=== PATIENT | male | born 1955 | race African-American/Black ===

== ENCOUNTER 2018-01-04 11:59 | Inpatient (IN) | payer MEDICAID, OTHER ==
[~2018-01-04] VITALS: Ht 188 cm; Wt 83.9 kg
[2018-01-04 12:41] LABS: BASOPHILS % (AUTO) 0.5 % (0.0-2.0); EOSINOPHILS % (AUTO) 0.4 % (0.0-7.0); HEMATOCRIT 30.3 % (36.7-47.1); HEMOGLOBIN 10.1 g/dL (12.5-16.3); LYMPHOCYTES # (AUTO) 1.1 K/uL (20.0-40.0); LYMPHOCYTES % (AUTO) 10.5 % (20.5-51.5); MEAN CORPUSCULAR HEMOGLOBIN 26.5 uug (23.8-33.4); MEAN CORPUSCULAR HGB CONC 33 g/dL (32.5-36.3); MEAN CORPUSCULAR VOLUME 79.6 fL (73.0-96.2); MONOCYTES # (AUTO) 1.3 K/uL (2.0-10.0); MONOCYTES % (AUTO) 12.3 % (0.0-11.0); NEUTROPHILS # (AUTO) 7.9 K/uL (1.8-8.9); NEUTROPHILS % (AUTO) 76.3 % (38.5-71.5); PLATELET COUNT (AUTO) 263 K/uL (152-348); RED BLOOD CELL COUNT(AUTO) 3.81 MIL/uL (4.06-5.63); WHITE BLOOD COUNT (AUTO) 10.4 K/uL (3.6-10.2)
[2018-01-04 12:49] LABS: CREATININE 1.1 mg/dL (0.6-1.3)
[2018-01-04] MEDS ORDERED: ACET-2605 PO (12:50)
[2018-01-04] MEDS ORDERED: MELA3TAB PO (12:50)
[2018-01-04] MEDS ORDERED: FERROUS SULFATE PO (12:50)
[2018-01-04] MEDS ORDERED: ATOR80TA PO (12:50)
[2018-01-04] MEDS ORDERED: POLY17PO4 PO (12:50)
[2018-01-04] MEDS ORDERED: MAGN400T6 PO (12:50)
[2018-01-04] MEDS ORDERED: RIVA10TA PO (12:50)
[2018-01-04] MEDS ORDERED: OXYC-128 PO (12:50)
[2018-01-04] MEDS ORDERED: BENA40TA2 PO (12:50)
[2018-01-04] MEDS ORDERED: GABA300C PO (12:50)
[2018-01-04] MEDS ORDERED: EMOL454C7 TP (12:50)
[2018-01-04] MEDS ORDERED: CARV12.52 PO (12:50)
[2018-01-04] MEDS ORDERED: PROT946L PO (12:50)
[2018-01-04] MEDS ORDERED: OXYC30TA86 PO (12:50)
[2018-01-04] MEDS ORDERED: ZOLP10TA2 PO (12:50)
[2018-01-04 12:55] LABS: BILIRUBIN,TOTAL 0.5 mg/dL (0.2-1.0); TOTAL PROTEIN, SERUM 8.1 g/dL (6.4-8.2)
[2018-01-04] MEDS ORDERED: HYDROCODONE/APAP 7.5-325MG TABLET PO PRN (13:15)
[2018-01-04] MEDS ORDERED: HYDROCODONE/APAP 7.5-325MG TABLET ONE (13:22)
[2018-01-04] MEDS ORDERED: IV NS 1000 ML 1,000 ML IV PRN (13:45)
[2018-01-04] MEDS ORDERED: Z GUARD REMEDY PASTE 57 GM TUBE TOP PRN (13:45)
[2018-01-04] MEDS ORDERED: MORPHINE SULFATE 2 MG/1 ML DISP.SYRIN IV PRN (13:45)
[2018-01-04] MEDS ORDERED: MAGNESIUM HYDROXIDE 30 ML LIQUID UDC PO PRN (13:45)
[2018-01-04] MEDS ORDERED: ONDANSETRON 4 MG/2 ML VIAL IV PRN (13:45)
[2018-01-04] MEDS ORDERED: ALBUTEROL SULFATE 2.5 MG/ 0.5 ML NEBU NEB ONE (13:45)
[2018-01-04] MEDS ORDERED: NITROGLYCERIN 0.4 MG/TAB BOTTLE SL PRN (13:45)
[2018-01-04] MEDS ORDERED: IPRATROPIUM BROMIDE 0.5 MG/2.5 ML NEBU NEB ONE (13:45)
[2018-01-04] MEDS ORDERED: CEFTRIAXONE 1 G in IV DEXTROSE 5% 50 ML IV ONE (13:45)
[2018-01-04] MEDS ORDERED: CEFTRIAXONE 1 G VIAL ONE (13:58)
[2018-01-04] MEDS: LEVOFLOXACIN 750MG/D5W 750 MG in PREMIXED 1 EACH IV SCH (14:02)
[2018-01-04] MEDS: GABAPENTIN 300 MG CAPSULE PO SCH ×3 (14:02→20:03)
[2018-01-04] MEDS ORDERED: IPRATROPIUM BROMIDE 0.5 MG/2.5 ML NEBU ONE (14:05)
[2018-01-04] MEDS ORDERED: ALBUTEROL SULFATE 2.5 MG/ 0.5 ML NEBU ONE (14:05)
[2018-01-04] MEDS ORDERED: LEVOFLOXACIN 750MG/D5W 150 ML IV ONE (14:15)
[2018-01-04] MEDS ORDERED: GABAPENTIN 300 MG CAPSULE ONE (14:16)
[2018-01-04 15:43] VITALS: BP 96/60
[2018-01-04 15:54] LABS: *BILIRUBIN,URIN NEGATIVE (NEGATIVE); *BLOOD, URINE NEGATIVE (NEGATIVE); *CLARITY,URINE SLIGHTLY CLOUDY (CLEAR); *COLOR,URINE YELLOW (YELLOW); *KETONES,URINE NEGATIVE (NEGATIVE); *PROTEIN,URINE NEGATIVE (NEGATIVE); LEUKOCYTE ESTERASE ,URINE NEGATIVE (NEGATIVE); NITRITE, URINE NEGATIVE (NEGATIVE); UGLUCOSE NEGATIVE (NEGATIVE)
[2018-01-04 15:56] LABS: BACTERIA,URINE NONE SEEN /HPF (NONE SEEN); RBC,URINE 0-3 /HPF (0-3); SQUAMOUS EPITHELIAL CELL,UR FEW /HPF (NONE SEEN); WBC,URINE 0-3 /HPF (0-3)
[2018-01-04] MEDS: MIRALAX 17 GM POWD.PACK PO SCH (17:00)
[2018-01-04] MEDS ORDERED: OXYCODONE/APAP 5-325 MG TABLET PO SCH (18:00)
[2018-01-04] MEDS: ACETAMINOPHEN 325 MG TABLET PO PRN (19:47)
[2018-01-04] MEDS: ATORVASTATIN 40 MG TABLET PO SCH (20:03)
[2018-01-04] MEDS: MORPHINE SULFATE 4 MG/1 ML DISP.SYRIN IV PRN (20:04)
[2018-01-04 21:23] VITALS: BP 141/55
[2018-01-05 00:09] VITALS: BP 134/59
[2018-01-05] MEDS: ACETAMINOPHEN 325 MG TABLET PO PRN (01:03)
[2018-01-05] MEDS ORDERED: ACETAMINOPHEN 325 MG TABLET PO ONE (01:15)
[2018-01-05] MEDS: MORPHINE SULFATE 4 MG/1 ML DISP.SYRIN IV PRN (03:25)
[2018-01-05 04:00] VITALS: BP 151/78
[2018-01-05 06:55] LABS: BASOPHILS % (AUTO) 0.3 % (0.0-2.0); EOSINOPHILS % (AUTO) 0.2 % (0.0-7.0); HEMATOCRIT 31.5 % (36.7-47.1); HEMOGLOBIN 10.4 g/dL (12.5-16.3); LYMPHOCYTES # (AUTO) 1.1 K/uL (20.0-40.0); LYMPHOCYTES % (AUTO) 10.6 % (20.5-51.5); MEAN CORPUSCULAR HEMOGLOBIN 26.4 uug (23.8-33.4); MEAN CORPUSCULAR HGB CONC 33 g/dL (32.5-36.3); MEAN CORPUSCULAR VOLUME 80.5 fL (73.0-96.2); MONOCYTES # (AUTO) 1.2 K/uL (2.0-10.0); MONOCYTES % (AUTO) 11.5 % (0.0-11.0); NEUTROPHILS # (AUTO) 7.8 K/uL (1.8-8.9); NEUTROPHILS % (AUTO) 77.4 % (38.5-71.5); PLATELET COUNT (AUTO) 248 K/uL (152-348); RED BLOOD CELL COUNT(AUTO) 3.92 MIL/uL (4.06-5.63); WHITE BLOOD COUNT (AUTO) 10.1 K/uL (3.6-10.2)
[2018-01-05 07:02] LABS: THYROID STIMULATING HORMONE 0.913 mIU/mL (0.358-3.740)
[2018-01-05 07:04] LABS: CREATININE 1.1 mg/dL (0.6-1.3); MAGNESIUM 1.8 mg/dL (1.8-2.4); PHOSPHOROUS 3.7 mg/dL (2.5-4.9); POTASSIUM 4.1 mmol/L (3.5-5.1)
[2018-01-05] MEDS: GABAPENTIN 300 MG CAPSULE PO SCH ×4 (08:10→21:10)
[2018-01-05] MEDS: ASPIRIN 81 MG TAB.CHEW PO SCH (08:10)
[2018-01-05] MEDS: OXYCODONE/APAP 5-325 MG TABLET PO PRN ×2 (08:11→19:01)
[2018-01-05] MEDS ORDERED: RIVAROXABAN 10 MG TABLET PO SCH (09:00)
[2018-01-05] MEDS: MIRALAX 17 GM POWD.PACK PO SCH ×2 (09:00→17:00)
[2018-01-05 11:16] VITALS: BP 94/61
[2018-01-05] MEDS ORDERED: VANCOMYCIN IV 1 G in PREMIXED 0 EACH IV SCH (12:00)
[2018-01-05] MEDS: LEVOFLOXACIN 750MG/D5W 750 MG in PREMIXED 1 EACH IV SCH (14:29)
[2018-01-05 15:20] VITALS: BP 129/73
[2018-01-05] MEDS: VANCOMYCIN IV 1,500 MG in IV DEXTROSE 5% 500 ML IV SCH (16:20)
[2018-01-05] MEDS: RIVAROXABAN 10 MG TABLET PO SCH (19:28)
[2018-01-05 20:00] VITALS: BP 125/55
[2018-01-05] MEDS ORDERED: CEFEPIME HCL 1 G in IV DEXTROSE 5% 50 ML IV SCH (21:00)
[2018-01-05] MEDS: ATORVASTATIN 40 MG TABLET PO SCH (21:11)
[2018-01-06] MEDS: VANCOMYCIN IV 1,500 MG in IV DEXTROSE 5% 500 ML IV SCH ×2 (00:12→13:09)
[2018-01-06] MEDS: OXYCODONE/APAP 5-325 MG TABLET PO PRN ×3 (01:40→14:59)
[2018-01-06 05:36] VITALS: BP 107/55
[2018-01-06 07:41] LABS: BASOPHILS % (AUTO) 0.5 % (0.0-2.0); EOSINOPHILS % (AUTO) 0.4 % (0.0-7.0); HEMATOCRIT 30.3 % (36.7-47.1); HEMOGLOBIN 10.2 g/dL (12.5-16.3); LYMPHOCYTES # (AUTO) 1.2 K/uL (20.0-40.0); LYMPHOCYTES % (AUTO) 13.6 % (20.5-51.5); MEAN CORPUSCULAR HEMOGLOBIN 26.4 uug (23.8-33.4); MEAN CORPUSCULAR HGB CONC 34 g/dL (32.5-36.3); MEAN CORPUSCULAR VOLUME 78.3 fL (73.0-96.2); MONOCYTES # (AUTO) 1.4 K/uL (2.0-10.0); MONOCYTES % (AUTO) 15.7 % (0.0-11.0); NEUTROPHILS # (AUTO) 6.2 K/uL (1.8-8.9); NEUTROPHILS % (AUTO) 69.8 % (38.5-71.5); PLATELET COUNT (AUTO) 275 K/uL (152-348); RED BLOOD CELL COUNT(AUTO) 3.87 MIL/uL (4.06-5.63); WHITE BLOOD COUNT (AUTO) 8.9 K/uL (3.6-10.2)
[2018-01-06 08:31] LABS: MAGNESIUM 1.8 mg/dL (1.8-2.4); PHOSPHOROUS 3.7 mg/dL (2.5-4.9)
[2018-01-06] MEDS: GABAPENTIN 300 MG CAPSULE PO SCH ×4 (08:55→20:00)
[2018-01-06] MEDS: CEFEPIME HCL 1 G in IV NORMAL SALINE 50 ML IV SCH ×2 (08:55→20:00)
[2018-01-06] MEDS: ASPIRIN 81 MG TAB.CHEW PO SCH (08:55)
[2018-01-06] MEDS: MIRALAX 17 GM POWD.PACK PO SCH ×2 (09:01→17:00)
[2018-01-06 10:06] LABS: BAND % (MANUAL) 7 % (0-10); BASOPHILS % (MANUAL) 1 % (0-2); LYMPHOCYTES % (MANUAL) 10 % (20-40); MONOCYTES % (MANUAL) 12 % (2-10); NEUTROPHILS % (MANUAL) 70 % (42-75)
[2018-01-06 11:42] VITALS: BP 105/56
[2018-01-06] MEDS: LEVOFLOXACIN 750MG/D5W 750 MG in PREMIXED 1 EACH IV SCH (15:42)
[2018-01-06 15:52] VITALS: BP 118/63
[2018-01-06] MEDS: RIVAROXABAN 10 MG TABLET PO SCH (18:25)
[2018-01-06 20:00] VITALS: BP 115/57
[2018-01-06] MEDS: ATORVASTATIN 40 MG TABLET PO SCH (20:00)
[2018-01-06] MEDS ORDERED: ZOLPIDEM 5 MG TABLET PO PRN (20:15)
[2018-01-07] MEDS: VANCOMYCIN IV 1,500 MG in IV DEXTROSE 5% 500 ML IV SCH ×2
[2018-01-07] MEDS: OXYCODONE/APAP 5-325 MG TABLET PO PRN ×3 (00:06→17:30)
[2018-01-07 04:00] VITALS: BP 120/72
[2018-01-07] MEDS: ASPIRIN 81 MG TAB.CHEW PO SCH (08:10)
[2018-01-07] MEDS: GABAPENTIN 300 MG CAPSULE PO SCH ×3 (08:10→17:26)
[2018-01-07] MEDS: MIRALAX 17 GM POWD.PACK PO SCH ×2 (08:11→17:00)
[2018-01-07] MEDS ORDERED: RIFAMPIN 300 MG CAPSULE PO SCH (09:00)
[2018-01-07] MEDS: CARVEDILOL 3.125 MG TABLET PO SCH ×2 (10:34→17:26)
[2018-01-07 11:50] VITALS: BP 121/63
[2018-01-07] MEDS ORDERED: VANCOMYCIN IV 1,500 MG in IV NORMAL SALINE 500 ML IV SCH (12:00)
[2018-01-07] MEDS ORDERED: VANCOMYCIN IV 1,500 MG in IV DEXTROSE 5% 500 ML IV SCH (12:00)
[2018-01-07 15:38] VITALS: BP 112/64
[2018-01-07] MEDS: RIVAROXABAN 10 MG TABLET PO SCH (17:27)
[2018-01-07 20:00] VITALS: BP 108/58
== END 2018-01-07 20:40 | DRG 720 ==
LOC: ER 11:59 → TELE 14:39 → MED 01-05 11:57
DX: A41.02 Sepsis due to Methicillin resistant Staphylococcus aureus (principal); I21.A1 Myocardial infarction type 2; J18.9 Pneumonia, unspecified organism; I70.262 Atherosclerosis of native arteries of extremities with gangrene, left leg; L97.225 Non-pressure chronic ulcer of left calf with muscle involvement without evidence of necrosis; F17.211 Nicotine dependence, cigarettes, in remission; L97.528 Non-pressure chronic ulcer of other part of left foot with other specified severity; I25.2 Old myocardial infarction; Z79.01 Long term (current) use of anticoagulants; I25.10 Atherosclerotic heart disease of native coronary artery without angina pectoris; Z98.61 Coronary angioplasty status; Z86.718 Personal history of other venous thrombosis and embolism; R65.20 Severe sepsis without septic shock; M79.2 Neuralgia and neuritis, unspecified; Z90.89 Acquired absence of other organs; I25.5 Ischemic cardiomyopathy; L03.116 Cellulitis of left lower limb; Z86.711 Personal history of pulmonary embolism; Z89.511 Acquired absence of right leg below knee; E78.5 Hyperlipidemia, unspecified; D63.8 Anemia in other chronic diseases classified elsewhere; I10 Essential (primary) hypertension; Z95.1 Presence of aortocoronary bypass graft; L97.529 Non-pressure chronic ulcer of other part of left foot with unspecified severity; J44.0 Chronic obstructive pulmonary disease with (acute) lower respiratory infection; J98.11 Atelectasis
CPT/HCPCS: 36415; 70030-TC; 71045; 73630; 83735; 84100; 84443; 85025; 85610; 87040; 87077; 87400; 93005; 93307; 97165; A4663; J0692; J0696; J1956; J2270; J3370; J3490; J3590; J7030; J7040; J7060